=== PATIENT | male | born 1950 | race Caucasian/White ===

== ENCOUNTER 2016-11-09 10:19 | Emergency (ER) | payer MEDICARE ==
[2016-11-09 11:21] LABS: BASO % 0.3 % (0.0-2.0); EOS % 0.2 % (0.0-4.0); HEMATOCRIT 44.5 % (35.0-51.0); LYMPH % 14.4 % (20.0-40.0); MEAN CELL VOLUME 85.7 fL (80.0-94.0); MEAN CORPUSCULAR HEMOGLOBIN 29.1 pg (27.0-31.0); MEAN CORPUSCULAR HGB CONC 33.9 g/dL (33.0-37.0); MEAN PLATELET VOLUME 7.4 fL (7.2-11.7); MONO # 0.2 K/uL (0.0-0.8); MONO % 2.8 % (0.0-10.0); NRBC % 0.1 % (0.0-2.0); RED CELL DISTRIBUTION WIDTH 14.2 % (11.5-14.5); WHITE BLOOD COUNT 7.2 K/uL (4.8-10.8)
[2016-11-09 11:36] LABS: CHLORIDE 104 mmol/L (98-107); SODIUM 140 mmol/L (132-148)
[2016-11-09 11:37] LABS: POTASSIUM 4.1 mmol/L (3.6-5.2)
[2016-11-09 11:39] LABS: ALB/GLOB RATIO 1.3 (1.0-2.1); ALKALINE PHOSPHATASE 90 U/L (38-126); ALT/SGPT 34 U/L (21-72); AST/SGOT 31 U/L (17-59); BILIRUBIN,TOTAL 0.9 mg/dL (0.2-1.3); BLOOD UREA NITROGEN 14 mg/dL (9-20); CARBON DIOXIDE 23 mmol/L (22-30); GFR AFRICAN-AMERICAN > 60; GLUCOSE,RANDOM 120 mg/dL (75-110); TOTAL PROTEIN 7.9 g/dL (6.3-8.3)
[2016-11-09 11:40] LABS: CALCIUM 8.7 mg/dl (8.6-10.4)
--- NOTE | 2016-11-09 12:19 | C.PDOC ---
History Of Present Illness 66 y/o male with PMHx of CAD presents to ED with reporting facial drooping , drooling and numbness on right face, that began 2 days ago. Patient states weakness and drooling improved but numbness is bothering him. Patient went to to see Bus Steward who sent to Neurologist yesterday. As per "anti- inflammatory and antibiotics" were prescribe and an MRI prescription was also given. Today symptoms continued so pt's insisted he come to the ED. Pt denies any other area of numbness or weakness. Patient denies injury, Headache, chest pain, fever, or chills. Time Seen by Provider: 11/09/16 10:38 Chief Complaint (Nursing): Weakness/Neurological Deficit History Per: Patient History/Exam Limitations: no limitations Onset/Duration Of Symptoms: Days Past Medical History Vital Signs: Last Vital Signs Temp 98.3 F 11/09/16 14:42 Pulse 79 11/09/16 14:42 Resp 20 11/09/16 14:42 BP 128/73 11/09/16 14:42 Pulse Ox 96 11/09/16 14:42 - Medical History PMH: CAD (with stents), HTN, Hypercholesterolemia Surgical History: Appendectomy, Cholecystectomy Family History: States: No Known Family Hx - Social History Hx Tobacco Use: No Hx Alcohol Use: No Hx Substance Use: No Review Of Systems Constitutional: Negative for: Fever, Chills, Weakness Cardiovascular: Negative for: Chest Pain Neurological: Positive for: Numbness. Negative for: Headache, Dizziness Physical Exam - Physical Exam Appears: Non-toxic, No Acute Distress Skin: Normal Color, Warm Head: Atraumatic, Normacephalic Eye(s): bilateral: Normal Inspection, left: Other (unable to close lid) Oral Mucosa: Moist Lips: Normal Appearing Neck: Supple Cardiovascular: Rhythm Regular, No Murmur Respiratory: No Rales, No Rhonchi, No Wheezing Gastrointestinal/Abdominal: Soft Extremity: Normal ROM Neurological/Psych: Oriented x3, Normal Speech, Normal Cognition, No Cerebellar Signs Other Neurological Findings: Other (Left mild facial weakness ) ED Course And Treatment - Laboratory Results Result Diagrams: 11/09/16 11:16 11/09/16 11:16 ECG: Interpreted By Me ECG Rhythm: Sinus Rhythm Interpretation Of ECG: Q in 3 Rate From EC O2 Sat by Pulse Oximetry: 97 Progress Note: Orders: MRI and EKG Medical Decision Making Medical Decision Making: Hx and Pe c/w Oneal's palsy however pt if very concerned about pt not already having the MRI ordered by Neurologist yesterday and that it could be something else. After much discussion Labs and MRI ordered However pt has cardiac stent placed 5 wks ago MRI policy here is waiting at least 2 mths post. 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 / has examined the patient and agrees with the treatment plan. - Scribe Statement The provider has reviewed the documentation as recorded by the Leannibgayla Tucker All medical record entries made by the Tamika were at my direction and personally dictated by me. I have reviewed the chart and agree that the record accurately reflects my personal performance of the history, physical exam, medical decision making, and the department course for this patient. I have also personally directed, reviewed, and agree with the discharge instructions and disposition.
--- NOTE | 2016-11-09 13:33 | CT ---
PROCEDURE: CT HEAD WITHOUT CONTRAST. HISTORY: Right facial droop COMPARISON: None available. TECHNIQUE: Axial computed tomography images were obtained through the head/brain without intravenous contrast. Radiation dose: Total exam DLP = 813.48 mGy-cm. This CT exam was performed using one or more of the following dose reduction techniques: Automated exposure control, adjustment of the mA and/or kV according to patient size, and/or use of iterative reconstruction technique. FINDINGS: HEMORRHAGE: No intracranial hemorrhage. BRAIN: No mass effect or edema. No atrophy or chronic microvascular ischemic changes. VENTRICLES: Unremarkable. No hydrocephalus. CALVARIUM: Unremarkable. PARANASAL SINUSES: Unremarkable as visualized. No significant inflammatory changes. MASTOID AIR CELLS: Unremarkable as visualized. No inflammatory changes. OTHER FINDINGS: None. IMPRESSION: No intracranial mass, hemorrhage or evidence of acute infarct.
[2016-11-09 14:43] VITALS: BP 128/73; PULSE 79; RESP 20; TEMP 98.3
--- NOTE | 2016-11-12 11:05 | CARD ---
APPROVED REPORT EKG Measurement Heart [id number] <Conclusion> Normal sinus rhythm Possible Inferior infarct, age undetermined Abnormal ECG
[2016-11-13 13:10] VITALS: O2SAT 97
== END 2016-11-09 14:42 | disposition home or self-care (01) ==
LOC: C.ER 10:19
DX: G51.0 Bell's palsy (principal)
CPT/HCPCS: 70450; 80053; 85025; 92610; 93005; 99285; G8996; G8997; G8998